=== PATIENT | male | born 1980 | race Caucasian/White ===

== ENCOUNTER 2021-01-23 21:11 | Emergency (ER) | payer SELFPAY ==
[~2021-01-23] VITALS: Ht 182.9 cm; Wt 99.8 kg
[~2021-01-23 21:11] MED LIST: ALBU90OI INH; AMIT10 PO; AMOCLA875 PO; AMOXICILLIN-CL1 EACH; AZIT250 PO; Ambien5 MG PO; CLON.1 PO; CLON.2 PO; CYCL10 PO; DIPATR PO; HYDACE10B PO; HYDACE5; HYDACE5 PO; KETO60I IM; META400 PO; NAPR550 PO; OMEP20ER; OXYACE5T PO; OXYC15ER PO; OXYC30ER PO; OXYC5 PO; PANT40 PO; PRED20 PO; PROC10 PO; PROM25 PO; Pepcid40 MG PO; Protonix40 MG PO; RANI150 PO; RXCYCL10 PO; RXHYDMOR2 PO; SUCR1 PO; SULTRIDS PO; TIZA4 PO; TIZANIDINE HCL4 MG PO; TRAZ100 PO
[2021-01-23 21:48] LABS: Source, Urine Clean Catch
[2021-01-23 21:50] LABS: BASOPHILS ABSOLUTE AUTO 0.05 K/mm3 (0.00-0.23); BASOPHILS PERCENT AUTO 1 % (0-2); EOSINOPHILS ABSOLUTE AUTO 0.41 K/mm3 (0.00-0.68); EOSINOPHILS PERCENT AUTO 4 % (0-6); Hematocrit 44.1 % (37.0-53.0); Hemoglobin 15.1 g/dL (13.5-17.5); IMMATURE GRAN ABSOLUTE AUTO 0.02 K/mm3 (0.00-0.10); IMMATURE GRAN PERCENT AUTO 0 % (0-1); LYMPHOCYTES ABSOLUTE AUTO 3.59 K/mm3 (0.84-5.20); LYMPHOCYTES PERCENT AUTO 36 % (21-46); MONOCYTES ABSOLUTE AUTO 0.85 K/mm3 (0.16-1.47); MONOCYTES PERCENT AUTO 9 % (4-13); Mean Corpuscular HGB 31.1 pg (26.0-34.0); Mean Corpuscular HGB Conc 34.2 g/dL (31.5-36.5); Mean Corpuscular Volume 91 fL (80-100); Mean Platelet Volume 10.8 fL (9.1-12.4); NEUTROPHILS ABSOLUTE AUTO 4.94 K/mm3 (1.96-9.15); NEUTROPHILS PERCENT AUTO 50 % (41-73); Platelet Count 378 K/mm3 (150-400); RDW Coefficient Variation 11.9 % (11.7-14.2); RDW Standard Deviation 39.6 fL (35.1-46.3); Red Blood Cell Count 4.86 M/mm3 (4.30-5.90); White Blood Cell Count 9.86 K/mm3 (4.00-11.30)
[2021-01-23 21:53] LABS: Appearance, Urine Clear (Clear); Blood, Urine 1+ (Neg); Color, Urine Amber (P-Yellow); Glucose Qualitative, Urine Neg (Neg); Ketones, Urine 2+ (Neg); Leukocyte Esterase, Urine 1+ (Neg); Nitrite, Urine Neg (Neg); Protein, Urine 3+ (Neg); Specific Gravity, Urine 1.025 (1.003-1.022); Urobilinogen, Urine 1+ (Normal)
[2021-01-23 22:04] LABS: Bacteria Many /hpf; Bilirubin, Urine 1+ (Neg); Calcium Oxalate Crystals Mod /hpf; Mucus Heavy (0-Heavy); Red Blood Cells, Urine 0-2 /hpf (0-2); Squamous Epithelial Cells Not Seen /hpf (Few)
[2021-01-23] MEDS ORDERED: TESTOSTERONE (22:05)
[2021-01-23] MEDS ORDERED: Vitamin C100 M1 (22:06)
[2021-01-23 22:07] LABS: Alanine Aminotransfer (ALT/SGP 51 U/L (12-78); Albumin, Blood 4.2 g/dL (3.4-5.0); Albumin/Globulin Ratio 1.3 (0.8-1.8); Alk Phos 88 U/L (50-136); Anion Gap 8 mmol/L (6-16); Aspartate Aminotrans (AST/SGOT 41 U/L (12-37); Bilirubin, Total 0.4 mg/dL (0.1-1.0); Blood Urea Nitrogen 11 mg/dL (8-24); Bun/Creatinine Ratio 10.1 (12.0-20.0); CO2, Blood 24 mmol/L (21-32); Calcium, Blood 8.9 mg/dL (8.5-10.1); Chloride, Blood 114 mmol/L (98-108); Creatinine, Blood 1.09 mg/dL (0.60-1.20); Ethanol (Alcohol), Blood, Med <3 mg/dL; Globulin, Blood 3.3 g/dL (2.2-4.0); Glomerular Filtration Rate >60 (60-); Glucose, Blood 149 mg/dL (70-99); Potassium, Blood 3.9 mmol/L (3.5-5.5); Salicylate <1.7 mg/dL (2.8-20.0); Sodium, Blood 146 mmol/L (136-145); Total Protein, Blood 7.5 g/dL (6.4-8.2); Troponin I <0.015 ng/mL (0.000-0.040)
[2021-01-23 22:08] LABS: Acetaminophen, Random <2.0 ug/mL (10.0-30.0)
[2021-01-23 22:09] LABS: U Amphetamine Screen Not Detected; U Barbituate Screen Not Detected; U Benzodiazapine Screen DETECTED; U Buprenorphine Screen Not Detected; U Cannabinoids Screen DETECTED; U Cocaine Screen Not Detected; U Methadone Screen Not Detected; U Methamphetamine Screen Not Detected; U Opiates Screen Not Detected; U Oxycodone Screen Not Detected; U Phencyclidine Screen Not Detected; U Propoxyphene Screen Not Detected
== END 2021-01-23 23:02 | disposition home or self-care (01) ==
LOC: ER 21:11
PROVIDERS: Emergency Medicine
DX: R07.9 Chest pain, unspecified (principal); F17.200 Nicotine dependence, unspecified, uncomplicated; Z79.899 Other long term (current) drug therapy
CPT/HCPCS: 80053; 81001; 84484; 85025; 87086; 93005; 93010; 99285-25; A9270; G0480